=== PATIENT | male | born 1955 | race Caucasian/White ===

== ENCOUNTER → 2017-05-26 | Outpatient (CLI) | payer SELFPAY | LOC: YCFC.O 09:35 | DX: R03.0 Elevated blood-pressure reading, without diagnosis of hypertension (principal) ==

== ENCOUNTER → 2017-06-15 | Outpatient (CLI) | payer OTHER | LOC: YCFC.O 11:18 | DX: R73.01 Impaired fasting glucose (principal) ==

== ENCOUNTER → 2018-04-13 | Outpatient (CLI) | payer MEDICARE, OTHER | LOC: LAB.O 08:41 | PROVIDERS: ATTEND Family Medicine | DX: Z00.00 Encounter for general adult medical examination without abnormal findings (principal); F17.200 Nicotine dependence, unspecified, uncomplicated; E11.9 Type 2 diabetes mellitus without complications; I10 Essential (primary) hypertension ==

== ENCOUNTER → 2018-04-29 | Outpatient (CLI) | payer MEDICARE, OTHER ==
--- NOTE | 2018-04-30 15:37 | CT ---
Procedure: CT LUNG SCREENING Exam Date: 04/29/2018. Ordering Provider: Paulo Nettles Clinical Indication: LUNG SCREENING. [facility] This patient meets eligibility criteria for low-dose CT lung cancer screening. Comparison: None available. Technique: Using a multislice scanner, sequential helical axial imaging was obtained in the thorax, 2.5 mm thickness, 2.5 mm separation, from the level of the thoracic inlet through the lung bases without IV contrast. A low dose protocol was utilized: CTDI: 1.76 mGy. 120. kVp. 45 mA. DLP 124.55 mGy centimeters. 2D sagittal and coronal reconstructed images, 6.0 mm thickness, were obtained. This exam was performed according to our departmental dose optimization program which includes use of automated exposure control, adjustment of the mA and/or kV according to patient size and/or use of iterative reconstruction technique. Nodule measurements under 10 mm are given as mean value of 3 axes diameters. FINDINGS: Lungs and large airways: Irregular soft tissue density, less likely mass, measuring approximately 3.1 cm x 2.0 x 2.4 cm, most likely scarring, with adjacent pleural thickening. No calcifications Posterior recess right lower lobe. Emphysematous blebs in the upper lung dave, less numerous in the lower lung dave. No abnormal nodules, definite masses. Pleura and space: No effusion bilaterally or pneumothorax Mediastinum and pranav: evaluation limited by low dose technique and lack of IV contrast. No large soft tissue mass or enlarged lymph nodes. Heart and great vessels: Atherosclerotic calcification aortic arch minimal calcification coronary artery calcifications and descending thoracic aorta. Chest wall, lower neck, axillae: Evaluation also limited by same factors as described above. Negative. Upper abdomen: Normal size and density of the adrenal glands and spleen. No fluid or free air in the included peritoneal space. Large rim calcified gallstones. Fatty density of the pancreas. Osseous structures: Evaluation limited by low dose MIP technique. Spondylosis at multiple levels of the thoracic spine. Bilateral sternoclavicular arthrosis. No lytic or blastic lesions. IMPRESSION: 1. Irregular density most likely scarring parenchyma or adjacent pleura in the posterior recess right lower lobe with greatest dimension 3.1 cm. No mass effect. [facility] Best Practice recommendations:. Please see below for Lung RADS category and FOLLOW-UP.* 2. Rim calcified gallstone in the gallbladder. Consider follow-up right upper quadrant ultrasound. Please see below. *Lung RADS category Category 4S - Findings for which additional diagnostic testing and/or tissue sampling is recommended (5 - 15% malignancy probability). Nodules: Solid nodule(s) 8mm to less than 15mm at baseline, new 6mm to under 8mm solid nodule, or growing less than 8mm nodule. Follow-up: Please return for a Low Dose Chest CT in 3 months for re-evaluation. Lung RADS Modifier S - Clinically Significant or Potentially Clinically Significant Findings (non lung cancer). Electronically signed by: Marvin Koroma MD 04/30/2018 3:35 PM [facility]
== END ==
LOC: CT 14:00
PROVIDERS: ATTEND Family Medicine
DX: Z87.891 Personal history of nicotine dependence (principal); R91.8 Other nonspecific abnormal finding of lung field; K80.20 Calculus of gallbladder without cholecystitis without obstruction

== ENCOUNTER → 2018-07-05 | Outpatient (CLI) | payer MEDICARE, OTHER | LOC: YCFC.O 10:22 | PROVIDERS: ATTEND Family Medicine | DX: E11.9 Type 2 diabetes mellitus without complications (principal); I10 Essential (primary) hypertension; F17.200 Nicotine dependence, unspecified, uncomplicated ==

== ENCOUNTER → 2018-08-04 | Outpatient (CLI) | payer MEDICARE, OTHER ==
--- NOTE | 2018-08-04 10:04 | US ---
EXAM DESCRIPTION: Gall Bladder CLINICAL HISTORY: CALCULUS OF GALLBLADDER WITHOUT OBSTRUCTION COMPARISON: None Available. TECHNIQUE: Right upper quadrant ultrasound FINDINGS: Pancreas: Visualized portions of the pancreas are unremarkable. Bowel gas obscures some areas. Aorta/inferior vena cava: No aortic aneurysm. Normal inferior vena cava. Liver: The liver is homogeneous in texture with increased echogenicity consistent with diffuse hepatic steatosis. No focal liver lesion or intrahepatic bile duct dilatation. No liver surface irregularity. Normal appearance of the portal vein and hepatic veins. Gallbladder: Dense shadowing emanates from the gallbladder fossa with large stone within the contracted gallbladder 2.4 cm. No gallbladder wall thickening or surrounding fluid. Sonographic Gomez sign was reported as negative. Common bile duct: Normal caliber measuring 2.6 mm. Right kidney: Renal length is 11.2 cm. Normal cortical echogenicity. Cortical thickness is normal. No hydronephrosis is seen. No renal mass or shadowing calculus. Cyst at the lower pole of the right kidney measures 2.9 cm. IMPRESSION: Gallstone without other changes to suggest acute cholecystitis. Hyperechoic liver consistent with diffuse hepatic steatosis. Electronically signed by: Efra Sloan MD 08/04/2018 10:02 AM CDT
--- NOTE | 2018-08-05 13:25 | CT ---
EXAM DESCRIPTION: Chest w/o Contrast CLINICAL HISTORY: LUNG NODULE COMPARISON: April 29, 2018 TECHNIQUE: Chest CT was performed without IV contrast. This exam was performed according to our departmental dose-optimization program, which includes automated exposure control, adjustment of the mA and/or kV according to patient size and/or use of iterative reconstruction technique. FINDINGS: Visualized portions of the thyroid and thoracic inlet are unremarkable. Coronary artery calcifications. No thoracic aortic aneurysm. No hiatal hernia. The main pulmonary artery is not dilated. No adenopathy. No pleural or pericardial effusion. The central airways are clear. No airspace consolidation or lung mass. Again seen is a small irregular density posteriorly in the right lung base probably represents atelectasis or scarring rather than a true lung nodule. Stable from April,. No new lung nodule. Cholelithiasis, partially visualized without CT evidence of cholecystitis. The upper abdomen is otherwise unremarkable for noncontrast technique. Old healed right-sided rib fractures. Degenerative changes in the thoracic spine multiple levels. IMPRESSION: Tiny focus of increased density posteriorly in the right lung base, stable from April,. This likely represents subsegmental atelectasis or scarring rather than a true lung nodule. No further follow-up is recommended for this finding. No new abnormality or other significant interval change. Electronically signed by: Nathaniel Castillo MD 08/05/2018 1:23 PM CDT
== END ==
LOC: US 09:11
PROVIDERS: ATTEND Family Medicine
DX: R91.1 Solitary pulmonary nodule (principal); K80.20 Calculus of gallbladder without cholecystitis without obstruction; K76.0 Fatty (change of) liver, not elsewhere classified

== ENCOUNTER → 2018-10-11 | Outpatient (CLI) | payer MEDICARE, OTHER | LOC: LAB.O 13:15 | PROVIDERS: ATTEND Family Medicine | DX: E11.9 Type 2 diabetes mellitus without complications (principal); E78.5 Hyperlipidemia, unspecified ==

== ENCOUNTER → 2019-03-30 | Outpatient (CLI) | payer MEDICARE, OTHER | LOC: LAB.O 10:19 | PROVIDERS: ATTEND Nurse Practitioner | DX: L02.91 Cutaneous abscess, unspecified (principal) ==

== ENCOUNTER → 2019-09-18 | Outpatient (CLI) | payer MEDICARE, OTHER | LOC: YCFC.O 14:13 | PROVIDERS: ATTEND Family Medicine | DX: E11.9 Type 2 diabetes mellitus without complications (principal); I10 Essential (primary) hypertension; E78.5 Hyperlipidemia, unspecified; R53.83 Other fatigue; Z12.5 Encounter for screening for malignant neoplasm of prostate | CPT/HCPCS: 36415; 80053; 80061; 81001; 82043; 82570; 83036; 84443; 85025; G0103 ==